=== PATIENT | male | born 1965 | race Caucasian/White ===

== ENCOUNTER 2017-02-24 17:17 | Emergency (ER) | payer SELFPAY ==
[2017-02-24 17:26] VITALS: BP 113/78; PULSE 74; TEMP 97.4; BMI 23.6
== END 2017-02-24 17:35 | disposition left against medical advice (07) ==
LOC: JER 17:17
DX: Z53.21 Procedure and treatment not carried out due to patient leaving prior to being seen by health care provider (principal)
CPT/HCPCS: 99281-25

== ENCOUNTER 2021-09-29 16:20 | Emergency (ER) | payer OTHER ==
[2021-09-29 16:43] VITALS: BP 139/97; PULSE 72; TEMP 97.5; BMI 23.6
[2021-09-29 17:13] LABS: BILIRUBIN,TOTAL 0.7 mg/dl (0.2-1); TOT PROT 6.9 g/dl (6.4-8.2)
[2021-09-29 18:49] LABS: BASO % 0.9 % (0-2.0); EOS % 4.4 % (0-4.5); HEMATOCRIT 43.4 % (35.4-49); HEMOGLOBIN 14.7 GM/dL (11.7-16.9); LYMPH % 28.3 % (8-40); MCH 28.9 pg (25.7-33.7); MCHC 33.9 g/dl (32.0-35.9); MEAN CELL VOLUME 85.4 fl (80-96); MEAN PLT VOLUME 7.6 fl (7.5-11.1); MONO % 8.9 % (3.8-10.2); NEUT % 57.5 % (42.8-82.8); PLATELET COUNT 245 10^3/uL (134-434); RBC 5.09 M/mm3 (4.00-5.60); RDW 13.5 % (11.9-15.9); WHITE BLOOD COUNT 5.6 K/mm3 (4.0-10.0)
== END 2021-09-29 17:38 | disposition home or self-care (01) ==
LOC: FER 16:20
DX: R41.9 Unspecified symptoms and signs involving cognitive functions and awareness (principal); R51.9 Headache, unspecified
CPT/HCPCS: 36415; 71045-TC-FY; 80053; 82550; 84484; 85025; 93005; 99285-25